=== PATIENT | male | born 1960 | race Caucasian/White ===

== ENCOUNTER 2021-07-04 12:04 | Inpatient (IN) | payer MEDICARE ==
[~2021-07-04] VITALS: Ht 172.7 cm; Wt 81.2 kg
[~2021-07-04 12:04] MED LIST: BACTRIM DS TAB1 EACH PO; CATAPRES 0.1MG0.1 MG PO; CIPRO250 MG PO; DAKIN'S473 M1 MC; FEOSOL325 MG PO; IBUPROFEN800 MG PO; INVOKANA100 MG PO; JARDIANCE25 MG PO; NEURONTIN300 MG PO; OMNICEF 300 MG300 MG PO; SANTYL OINT 3030 GM TP; TOPROL XL 25 MG25 MG PO; TRESIBA FL100 UNIT/1 SQ; VANCOMYCIN HCL1 GM IV
[2021-07-04 13:17] LABS: HEMOGLOBIN 12.7 gm/dl (14.0-17.5); RED BLOOD COUNT 4.34 M/UL (4.20-5.50); WHITE BLOOD COUNT 7.8 K/UL (4.5-11.0)
[2021-07-04 13:43] LABS: BUN/CREATININE RATIO 27 (0-10)
[2021-07-04] MEDS ORDERED: AMLODIPINE BESY10 MG PO (15:14)
[2021-07-04] MEDS ORDERED: HYDROCODON-ACE1 EAC2 PO (15:15)
[2021-07-04] MEDS ORDERED: GLIPIZIDE10 MG PO (15:15)
[2021-07-05 06:20] LABS: HEMOGLOBIN 12.8 gm/dl (14.0-17.5); RED BLOOD COUNT 4.37 M/UL (4.20-5.50)
[2021-07-05 06:21] LABS: WHITE BLOOD COUNT 5.6 K/UL (4.5-11.0)
[2021-07-05 06:39] LABS: BUN/CREATININE RATIO 25 (0-10)
[2021-07-05 23:36] LABS: ACINETOBACTER BAUMANNII Not Detected (Negative); CANDIDA ALBICANS Not Detected (Negative); CANDIDA KRUSEI Not Detected (Negative); CANDIDA TROPICALIS Not Detected (Negative); ENTEROCOCCUS Not Detected (Negative); ESCHERICHIA COLI Not Detected (Negative); HAEMOPHILUS INFLUENZAE Not Detected (Negative); KLEBSIELLA OXYTOCA Not Detected (Negative); KLEBSIELLA PNEUMONIAE Not Detected (Negative); KPC-CARBAPENEM-RESISTANCE GENE Not Detected (Negative); PROTEUS Not Detected (Negative); PSEUDOMONAS AERUGINOSA Not Detected (Negative); SERRATIA MARCESANS Not Detected (Negative); STAPHYLOCOCCUS Not Detected (Negative); STAPHYLOCOCCUS AUREUS Not Detected (Negative); STREP AGALACTIAE (GROUP B) Not Detected (Negative); STREP PYOGENES (GROUP A) Not Detected (Negative); STREPTOCOCCUS Not Detected (Negative); mecA (METHICILLIN RESIST GENE Not Detected (Negative); vanA/B (VANCOMYCIN RESIST GENE Not Detected (Negative)
[2021-07-06 06:13] LABS: HEMOGLOBIN 12.6 gm/dl (14.0-17.5); RED BLOOD COUNT 4.34 M/UL (4.20-5.50)
[2021-07-06 06:15] LABS: WHITE BLOOD COUNT 7.1 K/UL (4.5-11.0)
[2021-07-06 06:33] LABS: BUN/CREATININE RATIO 25 (0-10)
[2021-07-07 07:51] LABS: BUN/CREATININE RATIO 28 (0-10)
[2021-07-08 07:39] LABS: BUN/CREATININE RATIO 24 (0-10)
[2021-07-09 07:02] LABS: HEMOGLOBIN 11.9 gm/dl (14.0-17.5); RED BLOOD COUNT 4.18 M/UL (4.20-5.50); WHITE BLOOD COUNT 7.3 K/UL (4.5-11.0)
[2021-07-09 07:21] LABS: BUN/CREATININE RATIO 20 (0-10)
[2021-07-09] MEDS ORDERED: LEVOFLOXACIN750 MG PO (11:26)
[2021-07-09] MEDS ORDERED: CLEOCIN HCL300 MG PO (11:26)
[2021-07-09] MEDS ORDERED: ASPIRIN EC81 MG PO (11:26)
[2021-07-09] MEDS ORDERED: LISINOPRIL5 MG PO (11:26)
[2021-07-09] MEDS ORDERED: CLOPIDOGREL75 MG PO (11:26)
[2021-07-09] MEDS ORDERED: ATORVASTATIN CA20 MG PO (11:26)
[2021-07-09] MEDS ORDERED: SANTYL OINT 3030 GM TOP (11:26)
--- NOTE | 2021-07-09 12:41 | NUR ---
CALLED REPORT TO BIA AT [facility] FOR DRESSING CHANGES.
== END 2021-07-09 14:39 | disposition home or self-care (01) | DRG 253 ==
LOC: ER1 12:04 → MED SURG 4 14:49 → CDU 14:49 → MED SURG 4 16:57 → PROG CARE 07-08 16:41
PROVIDERS: Emergency Medicine; Internal Medicine; Internal Medicine Cardiovascular Disease; Physician Assistant; ADMIT Internal Medicine
PROC: 047P3Z1 Dilation of Right Anterior Tibial Artery using Drug-Coated Balloon, Percutaneous Approach (ICD-10-PCS; principal; 2021-07-08)
PROC: 047M3Z1 Dilation of Right Popliteal Artery using Drug-Coated Balloon, Percutaneous Approach (ICD-10-PCS; 2021-07-08)
PROC: B41D1ZZ Fluoroscopy of Aorta and Bilateral Lower Extremity Arteries using Low Osmolar Contrast (ICD-10-PCS; 2021-07-08)
DX: E11.52 Type 2 diabetes mellitus with diabetic peripheral angiopathy with gangrene (principal); L03.115 Cellulitis of right lower limb; E87.1 Hypo-osmolality and hyponatremia; M86.671 Other chronic osteomyelitis, right ankle and foot; I96 Gangrene, not elsewhere classified; I70.92 Chronic total occlusion of artery of the extremities; E11.621 Type 2 diabetes mellitus with foot ulcer; E11.40 Type 2 diabetes mellitus with diabetic neuropathy, unspecified; I10 Essential (primary) hypertension; I25.10 Atherosclerotic heart disease of native coronary artery without angina pectoris; E78.5 Hyperlipidemia, unspecified; L97.519 Non-pressure chronic ulcer of other part of right foot with unspecified severity; E11.65 Type 2 diabetes mellitus with hyperglycemia; Z20.822 Contact with and (suspected) exposure to COVID-19; F17.220 Nicotine dependence, chewing tobacco, uncomplicated; E11.69 Type 2 diabetes mellitus with other specified complication; Z89.431 Acquired absence of right foot; Z79.4 Long term (current) use of insulin; Z98.890 Other specified postprocedural states; Z79.899 Other long term (current) drug therapy; Z91.048 Other nonmedicinal substance allergy status; Z88.8 Allergy status to other drugs, medicaments and biological substances; Z83.3 Family history of diabetes mellitus; Z79.82 Long term (current) use of aspirin; Z79.52 Long term (current) use of systemic steroids
CPT/HCPCS: 36415; 73630; 73718; 75630; 75635; 80048; 80053; 80061; 80202; 82962; 83036; 83605; 83735; 85025; 85027; 85347; 85652; 86140; 87040; 87077; 87150; 87186; 93005; 93926; 93971; 96374; 96375; 99152; 99153; 99285; C1725; C1769; C1894; C2623; J0692; J1644; J1650; J2250; J2543; J3010; J3370; J7030; J7040; J7070; Q9965; Q9967; U0002

== ENCOUNTER 2021-08-02 19:19 | Emergency (ER) | payer MEDICARE ==
[~2021-08-02 19:19] MED LIST changes: +AMLODIPINE BESY10 MG PO; +ASPIRIN EC81 MG PO; +ATORVASTATIN CA20 MG PO; +CLEOCIN HCL300 MG PO; +CLOPIDOGREL75 MG PO; +GLIPIZIDE10 MG PO; +LEVOFLOXACIN750 MG PO; +LISINOPRIL5 MG PO; -NEURONTIN300 MG PO; +SANTYL OINT 3030 GM TOP
== END 2021-08-02 20:33 | disposition left against medical advice (07) ==
LOC: ER1 19:19
DX: Z53.21 Procedure and treatment not carried out due to patient leaving prior to being seen by health care provider (principal)

== ENCOUNTER 2021-08-03 08:42 | Emergency (ER) | payer MEDICARE ==
[2021-08-04] MEDS ORDERED: NEURONTIN400 MG PO (13:36)
[2021-08-04] MEDS ORDERED: HYDROCODON-ACE1 EAC2 PO (15:15)
[2021-08-04] MEDS ORDERED: CIPROFLOXACIN500 M1 PO (15:33)
[2021-08-04] MEDS ORDERED: PROTONIX40 MG PO (15:33)
[2021-08-04] MEDS ORDERED: TRULICITY1.5 MG/0.5 SQ (15:33)
== END 2021-08-03 15:48 | disposition left against medical advice (07) ==
LOC: ER1 08:42
DX: Z53.21 Procedure and treatment not carried out due to patient leaving prior to being seen by health care provider (principal)

== ENCOUNTER 2021-08-04 10:11 | Inpatient (IN) | payer MEDICARE, MEDICAID ==
[~2021-08-04] VITALS: Ht 172.7 cm; Wt 71.7 kg
[2021-08-04 11:49] LABS: HEMOGLOBIN 11.4 gm/dl (14.0-17.5); RED BLOOD COUNT 3.97 M/UL (4.20-5.50); WHITE BLOOD COUNT 7.8 K/UL (4.5-11.0)
[2021-08-04 12:09] LABS: BUN/CREATININE RATIO 26 (0-10)
[2021-08-04] MEDS ORDERED: NEURONTIN400 MG PO (13:36)
[2021-08-04] MEDS ORDERED: HYDROCODON-ACE1 EAC2 PO (15:15)
[2021-08-04] MEDS ORDERED: CIPROFLOXACIN500 M1 PO (15:33)
[2021-08-04] MEDS ORDERED: PROTONIX40 MG PO (15:33)
[2021-08-04] MEDS ORDERED: TRULICITY1.5 MG/0.5 SQ (15:33)
[2021-08-05 04:55] LABS: RED BLOOD COUNT 4.22 M/UL (4.20-5.50); WHITE BLOOD COUNT 7.3 K/UL (4.5-11.0)
[2021-08-05 05:49] LABS: BUN/CREATININE RATIO 20 (0-10)
[2021-08-06 03:53] LABS: HEMOGLOBIN 10.9 gm/dl (14.0-17.5); RED BLOOD COUNT 3.93 M/UL (4.20-5.50); WHITE BLOOD COUNT 5.7 K/UL (4.5-11.0)
[2021-08-06 04:37] LABS: BUN/CREATININE RATIO 14 (0-10)
--- NOTE | 2021-08-06 17:53 | NUR ---
1300 CHANGED PT DRESSING ON RIGHT FOOT. SITE HAS YELLOW DRAINAGE AND REDNESS. CLEANED WITH WOUND CLEANSER AND BETADINE. COVERED WITH NONADHESIVE ABD PAD AND CHINO. PT TOLERATED WELL. WCTM .
[2021-08-07 03:25] LABS: HEMOGLOBIN 11.6 gm/dl (14.0-17.5); RED BLOOD COUNT 4.15 M/UL (4.20-5.50); WHITE BLOOD COUNT 5.3 K/UL (4.5-11.0)
[2021-08-07 03:36] LABS: BUN/CREATININE RATIO 15 (0-10)
[2021-08-08 07:01] LABS: HEMOGLOBIN 10.8 gm/dl (14.0-17.5); RED BLOOD COUNT 3.87 M/UL (4.20-5.50); WHITE BLOOD COUNT 5.5 K/UL (4.5-11.0)
[2021-08-08 07:33] LABS: BUN/CREATININE RATIO 14 (0-10)
[2021-08-09 09:40] LABS: HEMOGLOBIN 11.4 gm/dl (14.0-17.5); RED BLOOD COUNT 4.08 M/UL (4.20-5.50); WHITE BLOOD COUNT 5.2 K/UL (4.5-11.0)
[2021-08-09 10:08] LABS: BUN/CREATININE RATIO 15 (0-10)
[2021-08-10 06:57] LABS: HEMOGLOBIN 10.7 gm/dl (14.0-17.5); RED BLOOD COUNT 3.85 M/UL (4.20-5.50)
[2021-08-10 07:11] LABS: BUN/CREATININE RATIO 15 (0-10)
[2021-08-11 07:22] LABS: HEMOGLOBIN 10.5 gm/dl (14.0-17.5); RED BLOOD COUNT 3.87 M/UL (4.20-5.50); WHITE BLOOD COUNT 4.8 K/UL (4.5-11.0)
[2021-08-11 07:51] LABS: BUN/CREATININE RATIO 14 (0-10)
== END 2021-08-12 01:35 | disposition short-term general hospital (02) | DRG 300 ==
LOC: ER1 10:11 → CDU 13:03 → MED SURG 4 13:03
PROVIDERS: Emergency Medicine; Internal Medicine; Physician Assistant Medical; ADMIT Internal Medicine
DX: E11.51 Type 2 diabetes mellitus with diabetic peripheral angiopathy without gangrene (principal); M00.871 Arthritis due to other bacteria, right ankle and foot; M86.171 Other acute osteomyelitis, right ankle and foot; M00.9 Pyogenic arthritis, unspecified; L03.115 Cellulitis of right lower limb; I73.9 Peripheral vascular disease, unspecified; Z20.822 Contact with and (suspected) exposure to COVID-19; I10 Essential (primary) hypertension; E11.628 Type 2 diabetes mellitus with other skin complications; E11.69 Type 2 diabetes mellitus with other specified complication; F17.220 Nicotine dependence, chewing tobacco, uncomplicated; E11.621 Type 2 diabetes mellitus with foot ulcer; E11.40 Type 2 diabetes mellitus with diabetic neuropathy, unspecified; Z91.041 Radiographic dye allergy status; Z79.4 Long term (current) use of insulin
CPT/HCPCS: 36415; 73630; 73700; 80048; 80053; 80202; 82962; 83036; 83735; 85025; 85027; 85652; 86140; 87040; 87070; 87077; 87186; 87205; 93926; 96374; 99285; J0692; J1335; J1650; J2543; J3370; J7030; J7070; U0002

== ENCOUNTER 2021-08-14 11:59 | Inpatient (IN) | payer MEDICARE, MEDICAID ==
[~2021-08-14] VITALS: Ht 172.7 cm; Wt 81.2 kg
[~2021-08-14 11:59] MED LIST changes: +CIPROFLOXACIN500 M1 PO; +HYDROCODON-ACE1 EAC2 PO; +NEURONTIN400 MG PO; +PROTONIX40 MG PO; +TRULICITY1.5 MG/0.5 SQ
[2021-08-14] MEDS ORDERED: LISINOPRIL5 MG PO (16:16)
[2021-08-14] MEDS ORDERED: AMLODIPINE BESY10 MG PO (16:16)
[2021-08-14] MEDS ORDERED: TRESIBA FL100 UNIT/1 SQ (16:17)
[2021-08-14] MEDS ORDERED: ASPIRIN EC81 MG PO (16:17)
[2021-08-14] MEDS ORDERED: MELATONIN3 MG PO (16:18)
[2021-08-14] MEDS ORDERED: MIRALAX17 GM PO (16:18)
[2021-08-14] MEDS ORDERED: ATORVASTATIN CA40 MG PO (16:18)
[2021-08-14] MEDS ORDERED: INSULIN LI100 UNIT/1 SQ (16:23)
[2021-08-14 18:50] LABS: HEMOGLOBIN 11.3 gm/dl (14.0-17.5); RED BLOOD COUNT 4.15 M/UL (4.20-5.50)
[2021-08-14 19:16] LABS: BUN/CREATININE RATIO 13 (0-10)
[2021-08-15 05:55] LABS: HEMOGLOBIN 10.3 gm/dl (14.0-17.5); WHITE BLOOD COUNT 5.6 K/UL (4.5-11.0)
[2021-08-15 05:59] LABS: RED BLOOD COUNT 3.73 M/UL (4.20-5.50)
[2021-08-15 06:12] LABS: BUN/CREATININE RATIO 14 (0-10)
--- NOTE | 2021-08-15 11:14 | NUR ---
0830- PATIENT LEFT FOR OR AT THIS TIME.
--- NOTE | 2021-08-15 11:15 | NUR ---
1050- BACK FROM OR AT THIS TIME. AWAKE AND ALERT IN STABLE CONDITION.
[2021-08-16 04:56] LABS: RED BLOOD COUNT 3.38 M/UL (4.20-5.50); WHITE BLOOD COUNT 5.4 K/UL (4.5-11.0)
[2021-08-16 05:46] LABS: BUN/CREATININE RATIO 14 (0-10)
[2021-08-17 08:23] LABS: HEMOGLOBIN 9.8 gm/dl (14.0-17.5); RED BLOOD COUNT 3.57 M/UL (4.20-5.50); WHITE BLOOD COUNT 5.1 K/UL (4.5-11.0)
[2021-08-17 08:51] LABS: BUN/CREATININE RATIO 13 (0-10)
[2021-08-18 05:00] LABS: HEMOGLOBIN 9.5 gm/dl (14.0-17.5); RED BLOOD COUNT 3.39 M/UL (4.20-5.50); WHITE BLOOD COUNT 4.7 K/UL (4.5-11.0)
[2021-08-18 05:18] LABS: BUN/CREATININE RATIO 17 (0-10)
[2021-08-19 09:59] LABS: HEMOGLOBIN 10.3 gm/dl (14.0-17.5); WHITE BLOOD COUNT 4.5 K/UL (4.5-11.0)
[2021-08-19 10:00] LABS: RED BLOOD COUNT 3.83 M/UL (4.20-5.50)
[2021-08-19 10:10] LABS: BUN/CREATININE RATIO 14 (0-10)
[2021-08-21 05:23] LABS: HEMOGLOBIN 9.3 gm/dl (14.0-17.5); WHITE BLOOD COUNT 3.7 K/UL (4.5-11.0)
[2021-08-21 05:28] LABS: RED BLOOD COUNT 3.43 M/UL (4.20-5.50)
[2021-08-21 06:52] LABS: BUN/CREATININE RATIO 16 (0-10)
[2021-08-22 10:00] LABS: HEMOGLOBIN 10.3 gm/dl (14.0-17.5); WHITE BLOOD COUNT 4.4 K/UL (4.5-11.0)
[2021-08-22 10:04] LABS: RED BLOOD COUNT 3.87 M/UL (4.20-5.50)
[2021-08-22 10:41] LABS: BUN/CREATININE RATIO 14 (0-10)
[2021-08-23 04:34] LABS: HEMOGLOBIN 9.6 gm/dl (14.0-17.5); RED BLOOD COUNT 3.57 M/UL (4.20-5.50)
[2021-08-23 05:21] LABS: BUN/CREATININE RATIO 14 (0-10)
--- NOTE | 2021-08-23 08:30 | NUR ---
7964- CONTACTED DR RONDON TO CLARIFY MEDICATIONS. ORDER TO HOLD ASPIRIN AND PLAVIX THIS AM FOR HEART CATHERATION PROCEDURE.
--- NOTE | 2021-08-23 18:18 | NUR ---
1805- PICC LINE DRESSING SATURATED WITH BLOOD. CHANGED PER STERILE TECHNIQUE AT THIS TIME. DR. CHAMPION NOTIFIED OF BLEEDING FROM INSERTION SITE. NEW ORDER TO HOLD ELIQUIS THIS PM AND USE PERIPHERAL IV INSTEAD OF PICC UNTIL BLEEDING STOPS.
[2021-08-24 07:18] LABS: HEMOGLOBIN 10.3 gm/dl (14.0-17.5); RED BLOOD COUNT 3.82 M/UL (4.20-5.50); WHITE BLOOD COUNT 4.6 K/UL (4.5-11.0)
[2021-08-24 07:48] LABS: BUN/CREATININE RATIO 18 (0-10)
[2021-08-24] MEDS ORDERED: ELIQUIS 5 MG TAB5 MG PO (15:36)
[2021-08-25 04:57] LABS: BUN/CREATININE RATIO 18 (0-10)
[2021-08-25 06:49] LABS: HEMOGLOBIN 9.7 gm/dl (14.0-17.5); RED BLOOD COUNT 3.54 M/UL (4.20-5.50); WHITE BLOOD COUNT 4.3 K/UL (4.5-11.0)
[2021-08-27 05:09] LABS: BUN/CREATININE RATIO 13 (0-10)
[2021-08-28 08:22] LABS: BUN/CREATININE RATIO 14 (0-10)
[2021-08-29 09:25] LABS: HEMOGLOBIN 10.1 gm/dl (14.0-17.5); RED BLOOD COUNT 3.69 M/UL (4.20-5.50); WHITE BLOOD COUNT 4.3 K/UL (4.5-11.0)
[2021-08-30 06:06] LABS: BUN/CREATININE RATIO 17 (0-10)
--- NOTE | 2021-08-31 06:56 | NUR ---
PATIENT HAS BID DRESSING CHANGE: IODOSORB OINTMENT TO FLAP LINE THICK BID RIGHT FOOT. 4X4'S, GAUZE WRAP, CHINO BANDAGE.
[2021-08-31 07:18] LABS: BUN/CREATININE RATIO 17 (0-10)
[2021-09-02 07:11] LABS: HEMOGLOBIN 8.4 gm/dl (14.0-17.5); RED BLOOD COUNT 3.2 M/UL (4.20-5.50); WHITE BLOOD COUNT 2.7 K/UL (4.5-11.0)
[2021-09-02 07:41] LABS: BUN/CREATININE RATIO 18 (0-10)
--- NOTE | 2021-09-02 14:33 | NUR ---
Lab called a positive covid test on the patient, MD made aware. Patient has no s/s of Covid at this time, will continue to monitor. Patient placed in isolation.
[2021-09-03 06:54] LABS: HEMOGLOBIN 8.8 gm/dl (14.0-17.5); RED BLOOD COUNT 3.32 M/UL (4.20-5.50); WHITE BLOOD COUNT 2.9 K/UL (4.5-11.0)
[2021-09-04 09:20] LABS: HEMOGLOBIN 9.2 gm/dl (14.0-17.5); RED BLOOD COUNT 3.4 M/UL (4.20-5.50); WHITE BLOOD COUNT 3.5 K/UL (4.5-11.0)
[2021-09-04 09:40] LABS: BUN/CREATININE RATIO 15 (0-10)
[2021-09-05 04:50] LABS: HEMOGLOBIN 8.7 gm/dl (14.0-17.5); RED BLOOD COUNT 3.2 M/UL (4.20-5.50); WHITE BLOOD COUNT 3.3 K/UL (4.5-11.0)
[2021-09-05 05:14] LABS: BUN/CREATININE RATIO 17 (0-10)
[2021-09-06 05:25] LABS: HEMOGLOBIN 8.7 gm/dl (14.0-17.5); RED BLOOD COUNT 3.18 M/UL (4.20-5.50); WHITE BLOOD COUNT 3.1 K/UL (4.5-11.0)
[2021-09-06 05:40] LABS: BUN/CREATININE RATIO 17 (0-10)
[2021-09-07 06:37] LABS: HEMOGLOBIN 9.4 gm/dl (14.0-17.5); RED BLOOD COUNT 3.45 M/UL (4.20-5.50); WHITE BLOOD COUNT 3.2 K/UL (4.5-11.0)
[2021-09-07 06:58] LABS: BUN/CREATININE RATIO 16 (0-10)
[2021-09-08 08:18] LABS: HEMOGLOBIN 8.6 gm/dl (14.0-17.5); RED BLOOD COUNT 3.29 M/UL (4.20-5.50); WHITE BLOOD COUNT 2.4 K/UL (4.5-11.0)
[2021-09-08 08:27] LABS: BUN/CREATININE RATIO 15 (0-10)
[2021-09-09 06:57] LABS: HEMOGLOBIN 8.6 gm/dl (14.0-17.5); RED BLOOD COUNT 3.33 M/UL (4.20-5.50); WHITE BLOOD COUNT 2.4 K/UL (4.5-11.0)
[2021-09-09 07:19] LABS: BUN/CREATININE RATIO 17 (0-10)
[2021-09-10 06:20] LABS: HEMOGLOBIN 8.6 gm/dl (14.0-17.5); RED BLOOD COUNT 3.28 M/UL (4.20-5.50)
[2021-09-10 06:30] LABS: BUN/CREATININE RATIO 17 (0-10)
[2021-09-11 12:27] LABS: HEMOGLOBIN 9.7 gm/dl (14.0-17.5); RED BLOOD COUNT 3.59 M/UL (4.20-5.50); WHITE BLOOD COUNT 3.5 K/UL (4.5-11.0)
[2021-09-11 12:58] LABS: BUN/CREATININE RATIO 16 (0-10)
[2021-09-12 06:18] LABS: HEMOGLOBIN 8.8 gm/dl (14.0-17.5); RED BLOOD COUNT 3.26 M/UL (4.20-5.50); WHITE BLOOD COUNT 3.5 K/UL (4.5-11.0)
[2021-09-13 05:50] LABS: HEMOGLOBIN 8.5 gm/dl (14.0-17.5); RED BLOOD COUNT 3.2 M/UL (4.20-5.50)
[2021-09-13 05:57] LABS: BUN/CREATININE RATIO 14 (0-10)
[2021-09-13] MEDS ORDERED: ELIQUIS5 MG PO (11:04)
--- NOTE | 2021-09-13 11:40 | NUR ---
DISCHARGE ON HOLD AT THIS TIME, FACILITY UNABLE TO TAKE HIM.
--- NOTE | 2021-09-13 15:26 | NUR ---
DR CONSTANTINO CHANGED DSG TO FOOT.
[2021-09-14 06:54] LABS: RED BLOOD COUNT 3.07 M/UL (4.20-5.50); WHITE BLOOD COUNT 2.8 K/UL (4.5-11.0)
[2021-09-14] MEDS ORDERED: INVANZ 1 GM VIAL1 GM IV (10:27)
[2021-09-14] MEDS ORDERED: VANCOMYCIN IV750 MG IV (12:11)
== END 2021-09-14 14:02 | disposition swing bed (61) | DRG 463 ==
LOC: MED SURG 4 11:59
PROVIDERS: Internal Medicine; Physician Assistant Medical; Podiatrist Foot & Ankle Surgery; ADMIT Internal Medicine
PROC: 0HRMXK3 Replacement of Right Foot Skin with Nonautologous Tissue Substitute, Full Thickness, External Approach (ICD-10-PCS; 2021-08-15)
PROC: 0Y6X0Z0 Detachment at Right 5th Toe, Complete, Open Approach (ICD-10-PCS; principal; 2021-08-15 09:06)
PROC: 02HV33Z Insertion of Infusion Device into Superior Vena Cava, Percutaneous Approach (ICD-10-PCS; 2021-08-23)
PROC: 8E0ZXY6 Isolation (ICD-10-PCS; 2021-09-02)
DX: M00.071 Staphylococcal arthritis, right ankle and foot (principal); U07.1 COVID-19; L03.115 Cellulitis of right lower limb; M86.171 Other acute osteomyelitis, right ankle and foot; I96 Gangrene, not elsewhere classified; I82.4Z1 Acute embolism and thrombosis of unspecified deep veins of right distal lower extremity; N17.9 Acute kidney failure, unspecified; E11.52 Type 2 diabetes mellitus with diabetic peripheral angiopathy with gangrene; E11.40 Type 2 diabetes mellitus with diabetic neuropathy, unspecified; E11.69 Type 2 diabetes mellitus with other specified complication; I10 Essential (primary) hypertension; I87.8 Other specified disorders of veins; Z79.02 Long term (current) use of antithrombotics/antiplatelets; Z79.82 Long term (current) use of aspirin; Z79.899 Other long term (current) drug therapy; Z83.3 Family history of diabetes mellitus; H53.8 Other visual disturbances; B95.61 Methicillin susceptible Staphylococcus aureus infection as the cause of diseases classified elsewhere; Z88.8 Allergy status to other drugs, medicaments and biological substances; F17.220 Nicotine dependence, chewing tobacco, uncomplicated; Z98.890 Other specified postprocedural states; R31.9 Hematuria, unspecified; Z91.048 Other nonmedicinal substance allergy status; Z89.429 Acquired absence of other toe(s), unspecified side
CPT/HCPCS: 36415; 70540; 71045; 73630; 80048; 80053; 80202; 82962; 83605; 83735; 85025; 85027; 85379; 85652; 86140; 87070; 87077; 87186; 87205; 93971; C1751; J0692; J1100; J1335; J1650; J2001; J2250; J2405; J2704; J2795; J3010; J3370; J7040; J7050; J7070; Q4133; U0002

== ENCOUNTER 2021-10-28 22:07 | Emergency (ER) | payer MEDICARE ==
[~2021-10-28 22:07] MED LIST changes: +ATORVASTATIN CA40 MG PO; +ELIQUIS 5 MG TAB5 MG PO; +ELIQUIS5 MG PO; +INSULIN LI100 UNIT/1 SQ; +INVANZ 1 GM VIAL1 GM IV; +MELATONIN3 MG PO; +MIRALAX17 GM PO; +VANCOMYCIN IV750 MG IV
[2021-10-28 23:04] LABS: RED BLOOD COUNT 4.56 M/UL (4.20-5.50); WHITE BLOOD COUNT 8.5 K/UL (4.5-11.0)
[2021-10-28 23:37] LABS: BUN/CREATININE RATIO 27 (0-10)
== END 2021-10-29 02:16 | disposition short-term general hospital (02) ==
LOC: ER1 22:07
PROVIDERS: Physician Assistant
DX: K92.2 Gastrointestinal hemorrhage, unspecified (principal); K20.90 Esophagitis, unspecified without bleeding; E11.9 Type 2 diabetes mellitus without complications; I11.9 Hypertensive heart disease without heart failure; Z88.8 Allergy status to other drugs, medicaments and biological substances
CPT/HCPCS: 80053; 82150; 82550; 82553; 83605; 83690; 84484; 85025; 96374; 96375; 99285; C9113; J2405; J2550; Q9967

== ENCOUNTER → 2022-02-03 | Outpatient (CLI) | payer MEDICARE | LOC: KOH-I 13:44 | DX: M79.671 Pain in right foot (principal); A52.16 Charcot's arthropathy (tabetic); S92.021A Displaced fracture of anterior process of right calcaneus, initial encounter for closed fracture; M25.474 Effusion, right foot; Z89.431 Acquired absence of right foot | CPT/HCPCS: 73610; 73630; 73700 ==

== ENCOUNTER → 2022-02-04 | Outpatient (CLI) | payer MEDICARE | LOC: KOH-I 09:51 | DX: I82.401 Acute embolism and thrombosis of unspecified deep veins of right lower extremity (principal) | CPT/HCPCS: 93971 ==

== ENCOUNTER → 2022-03-03 | Outpatient (CLI) | payer MEDICARE | LOC: KOH-I 10:02 | DX: M79.671 Pain in right foot (principal); M21.6X1 Other acquired deformities of right foot | CPT/HCPCS: 73630 ==

== ENCOUNTER → 2022-03-31 | Outpatient (CLI) | payer MEDICARE | LOC: KOH-I 11:42 | DX: M25.571 Pain in right ankle and joints of right foot (principal); M79.671 Pain in right foot; M14.671 Charcot's joint, right ankle and foot | CPT/HCPCS: 73610; 73630 ==

== ENCOUNTER → 2022-04-18 | Outpatient (CLI) | payer MEDICARE ==
[~2022-04-18] MED LIST changes: +CARAFATE1 GM PO; +MEDROL DOSEPAK 24 MG PO; +MEDROL4 MG PO; -NEURONTIN400 MG PO; +NEURONTIN800 MG PO; +STOOL SOFTENER100 MG PO; +TRESIBA100 UNIT/1 SQ
[2022-04-18 14:06] LABS: HEMOGLOBIN 9.4 gm/dl (14.0-17.5); RED BLOOD COUNT 3.82 M/UL (4.20-5.50); WHITE BLOOD COUNT 9.1 K/UL (4.5-11.0)
[2022-04-18 14:26] LABS: BUN/CREATININE RATIO 27 (0-10)
== END ==
LOC: OPSV2 12:30
PROVIDERS: Anesthesiology
DX: Z01.810 Encounter for preprocedural cardiovascular examination (principal)
CPT/HCPCS: 80048; 85025; 93005

== ENCOUNTER 2022-04-21 09:18 | Inpatient (IN) | payer MEDICARE, MEDICAID ==
[~2022-04-21] VITALS: Ht 172.7 cm; Wt 72.8 kg
[~2022-04-21 09:18] MED LIST changes: -CARAFATE1 GM PO; -MEDROL DOSEPAK 24 MG PO; -MEDROL4 MG PO; -STOOL SOFTENER100 MG PO; -TRESIBA100 UNIT/1 SQ
[2022-04-21] MEDS ORDERED: MEDROL DOSEPAK 24 MG PO (09:51)
[2022-04-21] MEDS ORDERED: LISINOPRIL5 MG PO (09:51)
[2022-04-21] MEDS ORDERED: TRESIBA100 UNIT/1 SQ (09:51)
[2022-04-21] MEDS ORDERED: TRULICITY1.5 MG/0.5 SQ (10:00)
[2022-04-21] MEDS ORDERED: PROTONIX40 MG PO (10:01)
[2022-04-21] MEDS ORDERED: CARAFATE1 GM PO (10:01)
[2022-04-22 07:33] LABS: RED BLOOD COUNT 3.65 M/UL (4.20-5.50); WHITE BLOOD COUNT 6.6 K/UL (4.5-11.0)
[2022-04-22 07:51] LABS: BUN/CREATININE RATIO 25 (0-10)
[2022-04-22] MEDS ORDERED: MEDROL4 MG PO (13:07)
[2022-04-22] MEDS ORDERED: JARDIANCE25 MG PO (13:08)
[2022-04-22] MEDS ORDERED: MELATONIN3 MG PO (13:08)
[2022-04-22] MEDS ORDERED: STOOL SOFTENER100 MG PO (13:08)
[2022-04-23 05:43] LABS: HEMOGLOBIN 8.6 gm/dl (14.0-17.5); RED BLOOD COUNT 3.48 M/UL (4.20-5.50); WHITE BLOOD COUNT 6.6 K/UL (4.5-11.0)
[2022-04-23 06:23] LABS: BUN/CREATININE RATIO 22 (0-10)
--- NOTE | 2022-04-23 14:30 | NUR ---
Patient surgical wound re-dressed per physician instructions at this time. Patient states that pain is much improved. Patient denies further needs.
[2022-04-24 04:00] LABS: HEMOGLOBIN 8.7 gm/dl (14.0-17.5); RED BLOOD COUNT 3.49 M/UL (4.20-5.50); WHITE BLOOD COUNT 7.2 K/UL (4.5-11.0)
[2022-04-24 04:30] LABS: BUN/CREATININE RATIO 31 (0-10)
[2022-04-25 03:33] LABS: HEMOGLOBIN 9.3 gm/dl (14.0-17.5); RED BLOOD COUNT 3.72 M/UL (4.20-5.50); WHITE BLOOD COUNT 6.4 K/UL (4.5-11.0)
[2022-04-25 03:59] LABS: BUN/CREATININE RATIO 28 (0-10)
--- NOTE | 2022-04-25 23:42 | NUR ---
ASKED PATIENT IF I COULD ASSESS HIS BOTTOM TO COMPLETE A HEAD TO TOE ASSESSMENT, HE SAID NO AND STATED FOLLOWS "NO ONE IS LOOKING AT MY DAMN ASS HOLE."
[2022-04-26 06:39] LABS: HEMOGLOBIN 8.9 gm/dl (14.0-17.5); RED BLOOD COUNT 3.57 M/UL (4.20-5.50); WHITE BLOOD COUNT 5.5 K/UL (4.5-11.0)
[2022-04-26 06:58] LABS: BUN/CREATININE RATIO 29 (0-10)
[2022-04-26] MEDS ORDERED: PERCOCET 5/325 T1 EA PO (11:07)
--- NOTE | 2022-04-26 13:03 | NUR ---
04/26/22 1300 REPORT CALLED TO DARIEL AWAD [facility]
== END 2022-04-26 13:41 | disposition home or self-care (01) | DRG 42 ==
LOC: OR 09:18 → MED SURG 4 16:43 → OR 16:44 → M/S 16:45 → MED SURG 4 16:45
PROVIDERS: ADMIT Surgery
PROC: 0Y6H0Z1 Detachment at Right Lower Leg, High, Open Approach (ICD-10-PCS; principal; 2022-04-21 09:30)
DX: E11.610 Type 2 diabetes mellitus with diabetic neuropathic arthropathy (principal); E11.621 Type 2 diabetes mellitus with foot ulcer; Z20.822 Contact with and (suspected) exposure to COVID-19; G56.00 Carpal tunnel syndrome, unspecified upper limb; G25.0 Essential tremor; F41.9 Anxiety disorder, unspecified; F32.A Depression, unspecified; I25.10 Atherosclerotic heart disease of native coronary artery without angina pectoris; E78.5 Hyperlipidemia, unspecified; F17.220 Nicotine dependence, chewing tobacco, uncomplicated; E11.51 Type 2 diabetes mellitus with diabetic peripheral angiopathy without gangrene; I10 Essential (primary) hypertension; E11.40 Type 2 diabetes mellitus with diabetic neuropathy, unspecified; K21.9 Gastro-esophageal reflux disease without esophagitis; G89.29 Other chronic pain; R19.7 Diarrhea, unspecified; Z79.4 Long term (current) use of insulin; Z79.82 Long term (current) use of aspirin; Z88.8 Allergy status to other drugs, medicaments and biological substances; Z98.890 Other specified postprocedural states; Z89.429 Acquired absence of other toe(s), unspecified side; Z81.8 Family history of other mental and behavioral disorders; Z82.49 Family history of ischemic heart disease and other diseases of the circulatory system; Z83.3 Family history of diabetes mellitus
CPT/HCPCS: 36415; 80048; 82962; 85025; 97110; 97116; 97116-GP-CQ; 97161; 97166; 97530; 97530-GP-CQ; J0690; J1100; J1170; J2001; J2250; J2270; J2405; J2704; J3010; J7030; U0002